=== PATIENT | female | born 1970 | race Hispanic/Latino ===

== ENCOUNTER → 2025-03-06 | Day surgery (SDC) | payer OTHER ==
[~2025-03-06] MED LIST: HYOSCYAMINE SULFATE 0.5 MG/ML INJ ONE; IRON PO; LACTATED RINGER'S 1,000 ML ONE; LIDOCAINE HCL 2% LOCAL INJ 5 ML SDV VIAL INJ ONE; METFORMIN HCL500 MG PO; METOCLOPRAMIDE HCL 10 MG/2ML VIAL ONE; PROPOFOL IV EMULSION 50 ML IV ONE; VITAMIN D31250 MCG PO
[2025-03-06 13:11] VITALS: TEMP 97.8
[2025-03-06 13:30] VITALS: BP 145/90; PULSE 65; RESP 18; O2SAT 99
== END | disposition home or self-care (01) ==
LOC: OR 09:47
PROVIDERS: ATTEND Internal Medicine Gastroenterology
DX: Z12.11 Encounter for screening for malignant neoplasm of colon (principal); K64.8 Other hemorrhoids; R73.03 Prediabetes; M19.90 Unspecified osteoarthritis, unspecified site; Z01.810 Encounter for preprocedural cardiovascular examination
CPT/HCPCS: 36415; 45378; 82948; 93005; J1980; J2003; J2765